=== PATIENT | female | born 1965 | race Two or more races ===

== ENCOUNTER 2025-07-21 20:21 | Emergency (ER) | payer OTHER ==
[~2025-07-21] VITALS: Ht 167.6 cm; Wt 64.2 kg
[2025-07-21 20:23] VITALS: BP 153/89; PULSE 64; RESP 16; TEMP 98.4; O2SAT 97
--- NOTE | 2025-07-21 20:40 | ED.PDOC ---
History of Present Illness HPI Comments 60 y/o F presents with c/c of left arm laceration after scratching it, earlier, today. Associated redness to left forearm area. Denial of any numbness, tingling, weakness, or further associated symptoms. Chief Complaint: Upper Extremity Time Seen by MD: 20:40 Reviewed Notes: Nurses Notes, Medications, Allergies Allergies: Coded Allergies: NO KNOWN ALLERGIES (Unverified , 07/21/25) Information Source: Patient Mode of Arrival: Ambulatory Severity: Moderate Timing: Hours Duration: Since onset Prehospital treatment: None Past Medical History PAST MEDICAL HISTORY: Denies Surgical History: Denies all surgeries EXPLOSIVES OPERATOR History: No Pertinent EXPLOSIVES OPERATOR History All Other Systems: Reviewed and Negative (Comprehensive review of systems are negative unless stated in HPI) Was a procedure done? Was a procedure done?: No Differential Dx Considerations may include: laceration, avulsion, among others X-Ray, Labs, Meds, VS Vital Signs Date Time Temp Pulse Resp B/P (MAP) Pulse Ox O2 Delivery O2 Flow Rate FiO2 07/21/25 20:23 98.4 64 16 153/89 97 98.4 Time of 1ST Reevaluation: 21:10 Reevaluation 1ST: Unchanged Patient Education/Counseling: Treatment, Need For Follow Up Family Education/Counseling: No Family Present SEPSIS Sepsis Screen Date sepsis recognized/suspect: Jul 21, 2025 Time Sepsis recognized/suspect: 2022 Recent Procedure: No On Antibiotic Therapy: No Respiratory Rate >20: No Heart Rate >90: No Temp<36 C (96.8 F) or >38.3 C: No SBP <90 or MAP <65 mmHG: No New Acute Mental Status Change: No Is the patient on CPAP, BIPAP,: No Vital Signs Date Time Temp Pulse Resp B/P (MAP) Pulse Ox O2 Delivery O2 Flow Rate FiO2 07/21/25 20:23 98.4 64 16 153/89 97 98.4 Departure 1 Departure Disposition: 01 HOME / SELF CARE / HOMELESS Condition: Stable Discharged With: Self Critical Care Note Critical Care Time?: No Stability Stability form required: No Heart Score Heart Score: Heart Score Response (Comments) Value History N/A 0 EKG N/A 0 Age N/A 0 Risk Factors N/A 0 Troponin N/A 0 Total 0 I personally scribed for ER ([email or web address]) on 07/21/25 at 20:40. Electronically submitted by Misael Gaming ([email or web address]). Jul 21, 2025 20:40
== END 2025-07-21 20:45 | disposition left against medical advice (07) ==
LOC: ER 20:21
DX: M79.602 Pain in left arm (principal); Z79.899 Other long term (current) drug therapy